=== PATIENT | female | born 1950 | race Caucasian/White ===

== ENCOUNTER → 2021-09-21 | Day surgery (SDC) | payer MEDICARE ==
[~2021-09-21] VITALS: Ht 160 cm; Wt 79.0 kg
[~2021-09-21] MED LIST: ATOR20TA58 PO; BYSTOLIC2.5 MG PO; DULO60CA7 PO; IV RINGERS,LACTATED 1000ML 1,000 ML IV SCH; LEFL10TA13 PO; LEVO75TA5 PO; LIDOCAINE 2% PF 5 ML VIAL. ONE; MAGN200T PO; METF500T16 PO; POTA10TA12 PO; PROPOFOL 10 MG/ML (20ML) VIAL. IV ONE; PYRI60TA PO; TOPI50TA8 PO; [UNRECOGNIZED DRUG - CODE] PO
[2021-09-21 14:23] VITALS: BP 152/78
--- NOTE | 2021-09-21 15:59 | PDOC4 ---
PROCEDURE Procedure Colonoscopy with biopsies Indication: chronic diarrhea. Meds: per anesthesia Findings: YAHIR normal. --'Scope advanced to TI. Prep adequate. IH's on retroflex, otherwise grossly normal throughout. Random biopsies from cecum/ascending and rectum. Tonya. well. IMIP: Diarrhea; grossly normal exam, biopsies pending. IH's REC: Resume meds, diet. Await path. F'/u in 2 weeks. Immodium prn. WILIAN SO MD Sep 21, 2021 15:59
[2021-09-21 16:12] VITALS: BP 100/50
--- NOTE | 2021-09-23 14:07 | PATHOLOGY ---
[facility] Accession Number: [id number] . 01 Material submitted: . PART A: cecum - CECUM AND ASCENDING COLON BIOPSY PART B: rectum - RECTUM BIOPSY . 01 Clinical history: . ABDOMINAL PAIN, NAUSEA, DIARRHEA COLONOSCOPY . 02 Diagnosis: A. Colon biopsies, cecum and ascending colon: - No diagnostic abnormalities. . B. Colorectal biopsies, rectum: - No diagnostic abnormalities. (JPM:krystal; 09/23/2021) S 09/23/2021 1223 Local . 02 Comment: Sections of the cecum and ascending colon biopsy reveal multiple segments of colonic mucosa. There is no evidence of a chronic destructive colitis, lymphocytic colitis, or collagenous colitis. . Sections of the rectal biopsy reveal a few segments of rectal mucosa. Once again, there is no evidence of a chronic destructive colitis, lymphocytic colitis, or collagenous colitis. (JPM:krystal; 09/23/2021) . 02 Electronically signed: . Fredy Acuña MD, Pathologist NPI- [id number] . 01 Gross description: . A. The specimen is received in formalin, labeled "Springsregier, Elayne, cecum and ascending colon biopsy ". Received are multiple segments of pale dickerson tissue ranging in size from 0.3 to 0.7 cm in maximum dimensions. The specimen is submitted entirely in cassette A1. . B. The specimen is received in formalin, labeled "Springsregier, Elayne, rectum biopsy". Received are 3 segments of pale dickerson tissue ranging in size from 0.4 to 0.5 cm in maximum dimensions. The specimen is submitted entirely in cassette B1.([facility]; 09/22/2021) [facility] 09/22/2021 1722 Local . 02 Pathologist provided ICD-10: R10.9, R19.7 . 02 CPT . 694709, 835649 Specimen Comment: A courtesy copy of this report has been sent to [phone] Specimen Comment: [id number] Specimen Comment: Report sent to / DR MERIDA Performed at: [address] [facility], [place] [id number] MD Jesus Mclean MD Phone: [phone] Performed at: [facility] [address] [place], [place] [id number] MD Fredy Acuña MD Phone: [phone]
== END | disposition home or self-care (01) ==
LOC: ENDOS 13:55
PROVIDERS: ATTEND Internal Medicine Gastroenterology
DX: K52.9 Noninfective gastroenteritis and colitis, unspecified (principal); K64.0 First degree hemorrhoids; K63.89 Other specified diseases of intestine; R10.9 Unspecified abdominal pain; I10 Essential (primary) hypertension; E78.00 Pure hypercholesterolemia, unspecified; K21.9 Gastro-esophageal reflux disease without esophagitis; R11.0 Nausea; E66.9 Obesity, unspecified; M06.9 Rheumatoid arthritis, unspecified; E03.9 Hypothyroidism, unspecified; Z79.84 Long term (current) use of oral hypoglycemic drugs; Z79.899 Other long term (current) drug therapy; Z90.710 Acquired absence of both cervix and uterus; Z98.890 Other specified postprocedural states; Z88.0 Allergy status to penicillin; Z88.2 Allergy status to sulfonamides; Z88.8 Allergy status to other drugs, medicaments and biological substances
CPT/HCPCS: 45380; J2704; 88305

== ENCOUNTER → 2021-10-05 | Day surgery (SDC) | payer MEDICARE ==
[~2021-10-05] VITALS: Ht 160 cm; Wt 79.0 kg
[2021-10-05 12:29] VITALS: BP 117/65
--- NOTE | 2021-10-05 13:56 | PDOC4 ---
PROCEDURE Procedure EGD with biopsies. Indication: RUQ/epigastric pain, diarrhea. Negative colonoscopy. Meds: per anesthesia Findings: E--Healed reflux at 40cm, baseline grade unclear. G--Diffuse antral erythema. Biopsies antrum and fundus. D--Diverticulum second portion, otherwise normal. Bx's from second portion. Tonya. well. IMP: Healed reflux, still symptomatic? Antral erythema, biopsied. Duodenal diverticulum; unlike source of symptoms. REC: Resume meds and diet. F/u results of PIPIDA/GBEF F/u with me in 2 weeks. WILIAN SO MD Oct 05, 2021 13:56
[2021-10-05 14:20] VITALS: BP 99/61
--- NOTE | 2021-10-08 16:08 | PATHOLOGY ---
[facility] Accession Number: [id number] . 01 Material submitted: . PART A: duodenum - DUODENAL BIOPSY PART B: stomach - ANTRAL BIOPSY PART C: stomach - FUNDUS BIOPSY . 01 Clinical history: . NAUSEA, ABDOMINAL PAIN EGD . 02 Diagnosis: A. Duodenal biopsy: - No diagnostic abnormalities. . B. Gastric biopsy, antrum: - Congestion and focal slight chronic inflammation. . C. Gastric biopsy, gastric fundus: - Congestion and focal slight chronic inflammation. (JPM:angélica; 10/08/2021) [facility] 10/08/2021 1154 Local . 02 Comment: Sections of the duodenal biopsy reveal duodenal mucosa. Where best oriented, the mucosal villi show no sprue-like changes or significant inflammatory changes. . Sections of the gastric antral biopsy reveal gastric body mucosa showing superficial congestion and focal slight chronic inflammation. A properly controlled immunoperoxidase stain for Helicobacter is negative for Helicobacter organisms. . Sections of the gastric fundus biopsy also reveal gastric body mucosa showing mild superficial congestion and focal slight chronic inflammation. A properly controlled immunoperoxidase stain for Helicobacter is negative for Helicobacter organisms. (JPM:pit; 10/08/2021) . Special stains: Immunoperoxidase stain for Helicobacter on B1 and C1. . . . 02 Electronically signed: . Fredy Acuña MD, Pathologist NPI- [id number] . 01 Gross description: . A. The specimen is received in formalin, labeled "GiovannyegElayne hickman, duodenal BX" and consists of 2 dickerson irregular tissues aggregating 0.5 x 0.4 x 0.2 cm which are submitted in toto in A1. . B. The specimen is received in formalin, labeled "Springsregier, Elayne, antral BX" and consists of a dickerson irregular tissue measuring 0.4 x 0.4 x 0.3 cm which is submitted in toto in B1. . C. The specimen is received in formalin, labeled "Springsregier, Elayne, fundus BX" and consists of 2 dickerson irregular tissues aggregating 0.4 x 0.4 x 0.2 cm which are submitted in toto in C1.([facility]; 10/07/2021) DKA/DKA 10/08/2021 1150 Local . 02 Pathologist provided ICD-10: K29.50, R11.0, R10.9 . 02 CPT . 579567, 494708, 911116, T88551 Specimen Comment: A courtesy copy of this report has been sent to [phone] Specimen Comment: [phone] Specimen Comment: Report sent to / DR MERIDA Performed at: 01 [facility] [address] [facility] [address], [place] [id number] MD Jesus Mclean MD Phone: [phone] Performed at: 02 [facility] [address] [place], [place] [id number] MD Fredy Acuña MD Phone: [phone]
== END | disposition home or self-care (01) ==
LOC: ENDOS 11:58
PROVIDERS: ATTEND Internal Medicine Gastroenterology
DX: R10.13 Epigastric pain (principal); R19.7 Diarrhea, unspecified; K57.10 Diverticulosis of small intestine without perforation or abscess without bleeding; K21.00 Gastro-esophageal reflux disease with esophagitis, without bleeding; R10.11 Right upper quadrant pain; K31.89 Other diseases of stomach and duodenum; K29.50 Unspecified chronic gastritis without bleeding; I10 Essential (primary) hypertension; E78.00 Pure hypercholesterolemia, unspecified; E66.9 Obesity, unspecified; M19.90 Unspecified osteoarthritis, unspecified site; E03.9 Hypothyroidism, unspecified; Z90.710 Acquired absence of both cervix and uterus; Z98.890 Other specified postprocedural states; Z79.899 Other long term (current) drug therapy; Z79.84 Long term (current) use of oral hypoglycemic drugs; Z88.0 Allergy status to penicillin; Z88.2 Allergy status to sulfonamides; Z88.8 Allergy status to other drugs, medicaments and biological substances
CPT/HCPCS: 43239; J2704; 88305; 88342